=== PATIENT | male | born 1970 | race Caucasian/White ===

== ENCOUNTER 2022-09-05 18:08 | Emergency (ER) | payer SELFPAY ==
[~2022-09-05] VITALS: Ht 172.7 cm; Wt 96.7 kg
--- NOTE | 2022-09-05 18:20 | ED Respiratory ---
General Chief Complaint: Respiratory Problems Stated Complaint: SOB Source: patient, EMS Exam Limitations: no limitations History of Present Illness Date Seen by Provider: Sep 05, 2022 Time Seen by Provider: 18:10 Initial Comments 51-year-old male arrives via EMS from the [facility]. He states that after dinner, around 430 or 5 PM he was talking with staff and became flushed, short of breath and anxious. He states he does have a history of anxiety attacks in the past, specifically when he was in assisted recently he started having panic attacks. They started him on an albuterol inhaler which did seem to help with his breathing symptoms that he has during these attacks. Today's episode is similar to previous episodes per his report however he did feel a little bit warmer than he usually does during these episodes. He denies any chest pain. He did have tingling in his bilateral hands and some lightheadedness. He was able to use his albuterol inhaler, 2 puffs prior to arrival and his breathing symptoms did improve. He states he is still feeling "exhausted" but otherwise is symptom-free at present. Denies any recent fevers chills nausea vomiting chest pain abdominal pain, changes in bowel or bladder habits. He does state he has had increased acid reflux as he is currently out of his Protonix. He also thinks he is almost out of his albuterol inhaler. Allergies and Home Medications Allergies Coded Allergies: No Known Drug Allergies (Unverified , 09/05/22) Patient Home Medication List Home Medication List Reviewed: Yes Review of Systems Review of Systems Constitutional: no symptoms reported EENTM: no symptoms reported Respiratory: short of breath Cardiovascular: no symptoms reported Gastrointestinal: no symptoms reported Genitourinary: no symptoms reported Musculoskeletal: no symptoms reported Skin: no symptoms reported Psychiatric/Neurological: No Symptoms Reported Hematologic/Lymphatic: No Symptoms Reported Immunological/Allergic: no symptoms reported Past Jujnjey-Hmfiha-Keathk Hx Patient Social History Tobacco Use?: Yes Tobacco type used: Cigarettes Smoking Status: Current Everyday Smoker Smokeless Tobacco Frequency: Heavy User Use of E-Cig and/or Vaping dev: No Substance use?: No Alcohol Use?: No Past Medical History Surgery/Hospitalization HX: Anxiety, GERD, hypercholesterolemia Family Medical History Reviewed Nursing Family Hx No Pertinent Family Hx Physical Exam Vital Signs - First Documented 09/05/22 18:10 Temp 36.2 Pulse 93 Resp 18 B/P (MAP) 131/101 (111) O2 Delivery Room Air Capillary Refill : Height: '" Weight: lbs. oz. kg; BMI Method: General Appearance: WD/WN, no apparent distress Eyes: Bilateral Eye Normal Inspection, Bilateral Eye PERRL, Bilateral Eye EOMI HEENT: normal ENT inspection, pharynx normal Neck: non-tender, full range of motion, supple, normal inspection Respiratory: chest non-tender, lungs clear, normal breath sounds, no respiratory distress, no accessory muscle use Cardiovascular: regular rate, rhythm, no edema, no gallop, no JVD, no murmur Gastrointestinal: normal bowel sounds, non tender, soft, no organomegaly Extremities: non-tender, normal inspection, no pedal edema Neurologic/Psychiatric: no motor/sensory deficits, alert, normal mood/affect, oriented x 3 Skin: normal color, warm/dry Lymphatic: no adenopathy Progress/Results/Core Measures Suspected Sepsis SIRS Temperature: Pulse: Respiratory Rate: Laboratory Tests 09/05/22 18:24: White Blood Count 10.1 Blood Pressure / Mean: Laboratory Tests 09/05/22 18:24: Creatinine 0.99, Platelet Count 291, Total Bilirubin 0.3 Results/Orders Lab Results Laboratory Tests Test 09/05/22 18:24 Range/Units White Blood Count 10.1 4.3-11.0 10^3/uL Red Blood Count 4.34 4.30-5.52 10^6/uL Hemoglobin 14.1 13.3-17.7 g/dL Hematocrit 41 40-54 % Mean Corpuscular Volume 95 80-99 fL Mean Corpuscular Hemoglobin 33 25-34 pg Mean Corpuscular Hemoglobin Concent 34 32-36 g/dL Red Cell Distribution Width 11.0 10.0-14.5 % Platelet Count 291 130-400 10^3/uL Mean Platelet Volume 9.7 9.0-12.2 fL Immature Granulocyte % (Auto) 0 % Neutrophils (%) (Auto) 56 42-75 % Lymphocytes (%) (Auto) 30 12-44 % Monocytes (%) (Auto) 12 0-12 % Eosinophils (%) (Auto) 1 0-10 % Basophils (%) (Auto) 1 0-10 % Neutrophils # (Auto) 5.6 1.8-7.8 10^3/uL Lymphocytes # (Auto) 3.0 1.0-4.0 10^3/uL Monocytes # (Auto) 1.2 H 0.0-1.0 10^3/uL Eosinophils # (Auto) 0.1 0.0-0.3 10^3/uL Basophils # (Auto) 0.1 0.0-0.1 10^3/uL Immature Granulocyte # (Auto) 0.0 0.0-0.1 10^3/uL Sodium Level 138 135-145 MMOL/L Potassium Level 4.2 3.6-5.0 MMOL/L Chloride Level 104 98-107 MMOL/L Carbon Dioxide Level 23 21-32 MMOL/L Anion Gap 11 5-14 MMOL/L Blood Urea Nitrogen 26 H 7-18 MG/DL Creatinine 0.99 0.60-1.30 MG/DL Estimat Glomerular Filtration Rate 92 BUN/Creatinine Ratio 26 Glucose Level 90 70-105 MG/DL Calcium Level 9.7 8.5-10.1 MG/DL Corrected Calcium 9.4 8.5-10.1 MG/DL Total Bilirubin 0.3 0.1-1.0 MG/DL Aspartate Amino Transf (AST/SGOT) 36 H 5-34 U/L Alanine Aminotransferase (ALT/SGPT) 34 0-55 U/L Alkaline Phosphatase 63 40-136 U/L Total Protein 7.7 6.4-8.2 GM/DL Albumin 4.4 3.2-4.5 GM/DL My Orders Orders - WALLACE CHRISTINE DO Chest Pa/Lat (2 View) (09/05/22 18:18) Cbc With Automated Diff (09/05/22 18:18) Comprehensive Metabolic Panel (09/05/22 18:18) Vital Signs/I&O 09/05/22 09/05/22 09/05/22 18:10 18:20 19:45 Temp 36.2 36.2 Pulse 93 135 Resp 18 18 B/P (MAP) 131/101 (111) 135/84 O2 Delivery Room Air Room Air Room Air Capillary Refill : Departure Communication (Admissions) Patient is hemodynamically stable. He has no cardiac risk factors. Symptoms consistent with anxiety attack as it is similar to his previous attacks in the past. Work-up here is unremarkable for any cardiac or respiratory etiology. He be discharged home in stable condition with supportive care. Impression Primary Impression: Anxiousness Disposition: 01 HOME, SELF-CARE Condition: Stable Departure-Patient Inst. Add. Discharge Instructions: Discharge instructions provided written as we had computer downtime during discharge. All discharge instructions reviewed with patient and/or family. Voiced understanding. WALLACE CHRISTINE DO Sep 05, 2022 18:20
[2022-09-05 18:26] LABS: BASOPHILS # (AUTO) 0.1 10^3/uL (0.0-0.1); BASOPHILS % (AUTO) 1 % (0-10); EOSINOPHILS # (AUTO) 0.1 10^3/uL (0.0-0.3); EOSINOPHILS % (AUTO) 1 % (0-10); HEMATOCRIT 41 % (40-54); HEMOGLOBIN 14.1 g/dL (13.3-17.7); LYMPHOCYTES % (AUTO) 30 % (12-44); MEAN CORPUSCULAR HEMOGLOBIN 33 pg (25-34); MEAN CORPUSCULAR HGB CONC 34 g/dL (32-36); MEAN CORPUSCULAR VOLUME 95 fL (80-99); MEAN PLATELET VOLUME 9.7 fL (9.0-12.2); MONOCYTES # (AUTO) 1.2 10^3/uL (0.0-1.0); MONOCYTES % (AUTO) 12 % (0-12); NEUTROPHILS # (AUTO) 5.6 10^3/uL (1.8-7.8); NEUTROPHILS % (AUTO) 56 % (42-75); PLATELET COUNT 291 10^3/uL (130-400); WHITE BLOOD COUNT 10.1 10^3/uL (4.3-11.0)
[2022-09-05 19:45] VITALS: BP 135/84
--- NOTE | 2022-09-05 19:49 | Diagnostic Imaging Report ---
CLINICAL INDICATION: Patient with dyspnea. EXAM: Chest x-ray PA and lateral views. COMPARISON: None. FINDINGS: Lungs/pleura: Lungs are clear. There is no pneumothorax. There is no pleural effusion. Mediastinum: Unremarkable. Pulmonary vasculature: Unremarkable. Heart: Unremarkable. Bones/extrathoracic soft tissue: Unremarkable. IMPRESSION: There is no radiographic evidence of acute cardiopulmonary process. Dictated by: Dictated on workstation # [id number]
[2022-09-05 19:57] LABS: POTASSIUM 4.2 MMOL/L (3.6-5.0)
[2022-09-05 19:58] LABS: BILIRUBIN,TOTAL 0.3 MG/DL (0.1-1.0); CALCIUM 9.7 MG/DL (8.5-10.1); CREATININE SERUM 0.99 MG/DL (0.60-1.30); TOTAL PROTEIN 7.7 GM/DL (6.4-8.2)
[2022-09-05 19:59] LABS: ALBUMIN 4.4 GM/DL (3.2-4.5)
== END 2022-09-05 19:58 | disposition home or self-care (01) ==
LOC: ER 18:10
DX: F41.9 Anxiety disorder, unspecified (principal); F17.210 Nicotine dependence, cigarettes, uncomplicated; Z28.310 Unvaccinated for COVID-19
CPT/HCPCS: 36415; 71046; 80053; 85025

== ENCOUNTER 2022-09-11 15:57 | Emergency (ER) | payer SELFPAY ==
--- NOTE | 2022-09-11 16:34 | ED Chest Pain ---
General Stated Complaint: SOA - HIGH BP Source: patient Exam Limitations: no limitations History of Present Illness Date Seen by Provider: Sep 11, 2022 Time Seen by Provider: 16:29 Initial Comments Patient is a 51-year-old male who presents the ED by POV from the [facility]. He states this a few hours before arrival he started having shortness of breath, facial redness. Patient reports sitting at the [facility] at that time. Started feeling short of breath with facial flushing. Patient took 2 puffs of his albuterol inhaler with some improvement of the shortness of breath. He states this does feel similar to previous panic attack. Staff at the [facility] called [facility] nurse who states patient appeared sweaty and was having d ifficulty breathing. States that he has been feeling malaise, with weakness with dizziness over the past 2 weeks. Dizziness with standing or eating. States he has generalized abdominal pain daily. History of GERD, IBS and cholecystectomy. Reports intermittent nausea with diarrhea. He is also reporting left wrist pain with his swelling. Staff was concern for left arm swelling. Patient is complaining of left wrist pain. Also reports bilateral lower leg pain. He states he may have hit his right leg with some bruising on the anterior side of his leg. Patient states he feels exhausted. He is currently on Protonix for acid reflux. Denies of any current chest pain but does report mild shortness of breath. Denies of any recent cough, fever, headache, sore throat, visual changes, unilateral muscle weakness or sensory changes, vomiting. Patient is a poor historian Allergies and Home Medications Allergies Coded Allergies: No Known Drug Allergies (Unverified , 09/05/22) Patient Home Medication List Home Medication List Reviewed: Yes Review of Systems Review of Systems Constitutional: No chills, No diaphoresis; malaise, weakness EENTM: No Double Vision, No Eye Pain Respiratory: Denies Cough; Shortness of Air Cardiovascular: Denies Chest Pain Gastrointestinal: Abdominal Pain, Nausea; Denies Vomiting Genitourinary: Denies Burning, Denies Discharge Musculoskeletal: No back pain, No joint pain Skin: No change in color, No change in hair/nails All Other Systems Reviewed Negative Unless Noted: Yes Past Flgezna-Bquklt-Zrmgkv Hx Past Medical History Surgery/Hospitalization HX: Anxiety, GERD, hypercholesterolemia Family Medical History No Pertinent Family Hx Physical Exam Vital Signs Vital Signs - First Documented 09/11/22 16:12 Temp 36.6 Pulse 99 Resp 22 B/P (MAP) 147/127 (134) Pulse Ox 99 O2 Delivery Room Air Capillary Refill : Height, Weight, BMI Height: '" Weight: lbs. oz. kg; 32.00 BMI Method: General Appearance: No Apparent Distress, WD/WN HEENT: PERRL/EOMI, TMs Normal, Normal ENT Inspection, Pharynx Normal Neck: Full Range of Motion, Normal Inspection, Non Tender, Supple Respiratory: Chest Non Tender, Lungs Clear, Normal Breath Sounds, No Accessory Muscle Use, No Respiratory Distress Cardiovascular: Regular Rate, Rhythm, No Edema, No JVD Gastrointestinal: Normal Bowel Sounds, No Organomegaly, No Pulsatile Mass, Soft, Tenderness (Generalized abdominal tenderness) Extremity: Normal Capillary Refill, Other (Tenderness to palpate left distal wrist. Mild swelling. No erythema, bruising to the left arm. Anterior bruising to the right anterior tib-fib with a contusion. Neurovascular intact bilateral lower extremities with dorsiflexion and plantarflexion 5-5.) Neurologic/Psychiatric: Alert, Oriented x3, No Motor/Sensory Deficits, Normal Mood/Affect Progress/Results/Core Measures Results/Orders Lab Results Laboratory Tests Test 09/11/22 16:39 09/11/22 16:43 Range/Units White Blood Count 7.0 4.3-11.0 10^3/uL Red Blood Count 4.31 4.30-5.52 10^6/uL Hemoglobin 13.9 13.3-17.7 g/dL Hematocrit 41 40-54 % Mean Corpuscular Volume 94 80-99 fL Mean Corpuscular Hemoglobin 32 25-34 pg Mean Corpuscular Hemoglobin Concent 34 32-36 g/dL Red Cell Distribution Width 11.0 10.0-14.5 % Platelet Count 264 130-400 10^3/uL Mean Platelet Volume 9.7 9.0-12.2 fL Immature Granulocyte % (Auto) 0 % Neutrophils (%) (Auto) 58 42-75 % Lymphocytes (%) (Auto) 30 12-44 % Monocytes (%) (Auto) 11 0-12 % Eosinophils (%) (Auto) 1 0-10 % Basophils (%) (Auto) 1 0-10 % Neutrophils # (Auto) 4.0 1.8-7.8 10^3/uL Lymphocytes # (Auto) 2.1 1.0-4.0 10^3/uL Monocytes # (Auto) 0.7 0.0-1.0 10^3/uL Eosinophils # (Auto) 0.1 0.0-0.3 10^3/uL Basophils # (Auto) 0.1 0.0-0.1 10^3/uL Immature Granulocyte # (Auto) 0.0 0.0-0.1 10^3/uL Prothrombin Time 12.4 12.2-14.7 SEC INR Comment 0.9 0.8-1.4 Activated Partial Thromboplast Time 28 24-35 SEC D-Dimer < 0.27 0.00-0.49 UG/ML Sodium Level 138 135-145 MMOL/L Potassium Level 3.6 3.6-5.0 MMOL/L Chloride Level 104 98-107 MMOL/L Carbon Dioxide Level 24 21-32 MMOL/L Anion Gap 10 5-14 MMOL/L Blood Urea Nitrogen 16 7-18 MG/DL Creatinine 1.06 0.60-1.30 MG/DL Estimat Glomerular Filtration Rate 84 BUN/Creatinine Ratio 15 Glucose Level 95 70-105 MG/DL Calcium Level 8.8 8.5-10.1 MG/DL Corrected Calcium 8.5 8.5-10.1 MG/DL Magnesium Level 2.0 1.6-2.4 MG/DL Total Bilirubin 0.4 0.1-1.0 MG/DL Aspartate Amino Transf (AST/SGOT) 25 5-34 U/L Alanine Aminotransferase (ALT/SGPT) 28 0-55 U/L Alkaline Phosphatase 62 40-136 U/L Myoglobin 27.6 10.0-92.0 NG/ML B-Type Natriuretic Peptide 18.7 <100.0 PG/ML Total Protein 7.5 6.4-8.2 GM/DL Albumin 4.4 3.2-4.5 GM/DL Lipase 56 8-78 U/L Urine Color YELLOW Urine Clarity CLEAR Urine pH 6.0 5-9 Urine Specific [place] 1.020 1.016-1.022 Urine Protein NEGATIVE NEGATIVE Urine Glucose (UA) NEGATIVE NEGATIVE Urine Ketones NEGATIVE NEGATIVE Urine Nitrite NEGATIVE NEGATIVE Urine Bilirubin NEGATIVE NEGATIVE Urine Urobilinogen 0.2 < = 1.0 MG/DL Urine Leukocyte Esterase NEGATIVE NEGATIVE Urine RBC (Auto) NEGATIVE NEGATIVE Urine RBC NONE /HPF Urine WBC NONE /HPF Urine Squamous Epithelial Cells NONE /HPF Urine Crystals NONE /LPF Urine Bacteria NEGATIVE /HPF Urine Casts NONE /LPF Urine Mucus NEGATIVE /LPF Urine Culture Indicated NO My Orders Orders - EUGENIE TONG PA Cbc With Automated Diff (09/11/22 16:25) Magnesium (09/11/22 16:25) Chest 1 View, Ap/Pa Only (09/11/22 16:25) Ekg Tracing (09/11/22 16:25) Comprehensive Metabolic Panel (09/11/22 16:25) Myoglobin Serum (09/11/22 16:25) Protime With Inr (09/11/22 16:25) Partial Thromboplastin Time (09/11/22 16:25) Monitor-Rhythm Ecg Trace Only (09/11/22 16:25) Ed Iv/Invasive Line Start (09/11/22 16:25) Lipase (09/11/22 16:25) Bnp Kidder (09/11/22 16:25) Troponin I Kidder (09/11/22 16:25) Wrist, Left, 3 Views Or More (09/11/22 16:25) Fibrin Degradation Products (09/11/22 16:27) Urinalysis (09/11/22 16:28) Vital Signs/I&O 09/11/22 16:12 Temp 36.6 Pulse 99 Resp 22 B/P (MAP) 147/127 (134) Pulse Ox 99 O2 Delivery Room Air Comment Sinus rhythm, 84 bpm, QRS duration 90 MS, QTc 447 MS Departure Communication (PCP) Patient was brought to the ED by [facility] staff for shortness of breath, facial flushing and potential blood clot. Patient is currently at the [facility]. Patient on arrival in no acute respiratory distress. Patient has multiple complaints and poor historian. Due to the shortness of breath, left arm pain cardiac work-up was ordered. Patient was slightly tachycardic but that did improve. 98% on room air. Slightly hypertensive. EKG showed normal sinus rhythm. Patient with low cardiac risk factors. Heart score 2. Patient chest x-ray was negative for acute abnormality. Patient was complaining of left wrist pain. Mild swelling noted. X-ray was negative for fracture. No bruising, swelling or redness to the left arm. Has an bruising to the right anterior lowe r tib-fib. He states he hit his leg on something. No calf tenderness bilateral. Negative Homans' sign. Patient reports generalized abdominal discomfort with generalized tenderness. CBC, CMP was otherwise unremarkable. Urinalysis was negative for infection. Normal cardiac enzymes troponin, BNP and D-dimer. Patient is resting comfortably at this time. patient with chronic ab dominal pain. History of IBS. Recommend Bentyl. He is currently on Protonix after reviewing previous medication. Reviewed previous ER visit from the . Patient was seen here with increase anxiousness. Similar type behavior today. Reassured with unremarkable cardiac work-up. Patient will be discharged back to the [facility]. Patient agrees with this plan of action. Impression Primary Impression: Anxiousness Additional Impression: Dyspnea Disposition: 01 HOME, SELF-CARE Condition: Stable Departure-Patient Inst. Decision time for Depature: 17:24 Referrals: [facility] [place],LOCAL PHYSICIAN (PCP) Primary Care Physician Patient Instructions: Shortness of Breath (Dyspnea) Add. Discharge Instructions: Recommend following up with primary care physician outpatient for further evaluation. Cardiac work-up was unremarkable. No evidence of PE or DVT. EUGENIE TONG Sep 11, 2022 16:34
[2022-09-11 16:46] LABS: BASOPHILS # (AUTO) 0.1 10^3/uL (0.0-0.1); BASOPHILS % (AUTO) 1 % (0-10); EOSINOPHILS # (AUTO) 0.1 10^3/uL (0.0-0.3); EOSINOPHILS % (AUTO) 1 % (0-10); HEMATOCRIT 41 % (40-54); HEMOGLOBIN 13.9 g/dL (13.3-17.7); LYMPHOCYTES # (AUTO) 2.1 10^3/uL (1.0-4.0); LYMPHOCYTES % (AUTO) 30 % (12-44); MEAN CORPUSCULAR HEMOGLOBIN 32 pg (25-34); MEAN CORPUSCULAR HGB CONC 34 g/dL (32-36); MEAN CORPUSCULAR VOLUME 94 fL (80-99); MEAN PLATELET VOLUME 9.7 fL (9.0-12.2); MONOCYTES # (AUTO) 0.7 10^3/uL (0.0-1.0); MONOCYTES % (AUTO) 11 % (0-12); NEUTROPHILS % (AUTO) 58 % (42-75); PLATELET COUNT 264 10^3/uL (130-400)
[2022-09-11 16:50] LABS: BILIRUBIN,URINE NEGATIVE (NEGATIVE); CLARITY,URINE CLEAR; COLOR,URINE YELLOW; GLUCOSE, URINE (UA) NEGATIVE (NEGATIVE); KETONES,URINE NEGATIVE (NEGATIVE); LEUKOCYTE ESTERASE ,URINE NEGATIVE (NEGATIVE); NITRITE,URINE NEGATIVE (NEGATIVE); PROTEIN,URINE NEGATIVE (NEGATIVE)
[2022-09-11 16:58] LABS: BACTERIA,URINE NEGATIVE /HPF
--- NOTE | 2022-09-11 16:58 | Diagnostic Imaging Report ---
PATIENT HISTORY: Chest pain. TECHNIQUE: Single frontal view of the chest. COMPARISON: 09/05/2022. FINDINGS: The lung volumes are normal. No focal consolidation is seen. No large pleural effusion or pneumothorax is seen. The cardiomediastinal silhouette is normal in size and contour. No acute osseous abnormality is seen. IMPRESSION: No acute pulmonary abnormality seen. Dictated by: Dictated on workstation # [id number]
--- NOTE | 2022-09-11 16:58 | Diagnostic Imaging Report ---
EXAMINATION: Left wrist radiographs, 3 views. COMPARISON: None. HISTORY: 51-year-old male, left wrist pain. FINDINGS: There is no identified acute fracture. Bone mineralization and alignment is unremarkable. There is no radiopaque foreign body. The joint spaces are well preserved. IMPRESSION: Unremarkable radiographs of the left wrist. Dictated by: Dictated on workstation # [id number]
[2022-09-11 17:04] LABS: ALBUMIN 4.4 GM/DL (3.2-4.5); POTASSIUM 3.6 MMOL/L (3.6-5.0)
[2022-09-11 17:06] LABS: CALCIUM 8.8 MG/DL (8.5-10.1)
[2022-09-11 17:07] LABS: TOTAL PROTEIN 7.5 GM/DL (6.4-8.2)
[2022-09-11 17:09] LABS: BILIRUBIN,TOTAL 0.4 MG/DL (0.1-1.0)
[2022-09-11 17:10] LABS: CREATININE SERUM 1.06 MG/DL (0.60-1.30)
[2022-09-11 17:22] LABS: INR 0.9 (0.8-1.4); PROTHROMBIN TIME PATIENT 12.4 SEC (12.2-14.7)
[2022-09-11 18:05] VITALS: BP 153/92
== END 2022-09-11 18:07 | disposition home or self-care (01) ==
LOC: EDUNIT# 15:57 → ER 15:58
DX: S60.212A Contusion of left wrist, initial encounter (principal); S80.11XA Contusion of right lower leg, initial encounter; F41.9 Anxiety disorder, unspecified; K21.9 Gastro-esophageal reflux disease without esophagitis; Z79.899 Other long term (current) drug therapy; Z90.49 Acquired absence of other specified parts of digestive tract; Z87.19 Personal history of other diseases of the digestive system; Z28.310 Unvaccinated for COVID-19; W22.8XXA Striking against or struck by other objects, initial encounter
CPT/HCPCS: 36415; 71045; 73110; 80053; 81000; 83690; 83735; 83874; 83880; 84484; 85025; 85379; 85610; 85730; 93005

== ENCOUNTER 2022-11-11 22:07 | Emergency (ER) | payer SELFPAY ==
[~2022-11-11] VITALS: Ht 172.7 cm; Wt 85.0 kg
--- NOTE | 2022-11-11 22:41 | ED Respiratory ---
General Chief Complaint: Respiratory Problems Stated Complaint: SOA Source: patient History of Present Illness Date Seen by Provider: Nov 11, 2022 Time Seen by Provider: 22:40 Initial Comments PT ARRIVES VIA EMS FROM A RESIDENCE --PT STATES HE IS HOMELESS PT C/O SHORTNESS OF BREATH AFTER SMOKING A CIGARETTE JUST PRIOR TO ARRIVAL O2 SATS WERE 100% FOR EMS, AND EMS GAVE PT A DUO NEB TREATMENT EN ROUTE. HE DOES NOT FEEL SHORT OF BREATH NOW. PT STATES HE HAS "BEEN SMOKING ALL DAY"--HAS SMOKED 1 PACK TODAY, WHICH IS WHAT HE NORMALLY SMOKES. PT STATES HE STARTED SMOKING WHEN HE WAS 17, HE WENT TO [facility] A LITTLE OVER 10 YEARS AGO AND WAS THERE FOR 10 YEARS, AND WAS RELEASED IN JUNE 2022. HE STATES HE DID NOT SMOKE WHILE HE WAS IN [facility], BUT STARTED SMOKING AGAIN SOON HE GOT OUT OF [facility]. HE DENIES CHEST PAIN OR PAIN WITH BREATHING NO FEVER/SWEATS/CHILLS NO SWELLING IN LEGS/ANKLES OR PAIN IN CALVES NO PALPITATIONS NO DIZZINESS OR SYNCOPE PT STATES HE HAS BEEN SICK FOR THE LAST 2-3 DAYS WITH NON-PRODUCTIVE COUGH AND CONGESTION--NO FEVER AT ANY TIME HE HAS NOT TAKEN ANYTHING FOR SYMPTOMS HIS GIRLFRIEND HAS ALSO BEEN SICK FOR THE LAST FEW DAYS WITH COUGH AND CONGESTION. PT IS NOT COVID OR FLU VACCINATED HE DENIES ANY MEDICAL PROBLEMS, AND DENIES ANY HISTORY OF LUNG PROBLEMS OR HEART PROBLEMS PCP :ADDISON Allergies and Home Medications Allergies Coded Allergies: No Known Drug Allergies (Unverified , 09/05/22) Patient Home Medication List Home Medication List Reviewed: Yes Doxycycline Hyclate (Doxycycline Hyclate) 100 Mg Tablet, 100 MG PO BID Prescribed by: DEMARCO AGUILAR on 11/12/22 Guaifenesin/Dextromethorphan (Mucinex Dm ER 1,200-60 mg Tab) 1,200 Mg-60 Mg Tbmp.12hr, 1 EACH PO BID Prescribed by: DEMARCO AGUILAR on 11/12/22 Methylprednisolone (Medrol) 4 Mg Tab.ds.pk, 4 MG PO UD Prescribed by: DEMARCO AGUILAR on 11/12/22 Review of Systems Review of Systems Constitutional: no symptoms reported; No chills, No diaphoresis, No dizziness, No fever EENTM: see HPI, nose congestion Respiratory: see HPI, cough, short of breath Cardiovascular: no symptoms reported Gastrointestinal: no symptoms reported Genitourinary: no symptoms reported Musculoskeletal: no symptoms reported Skin: no symptoms reported Psychiatric/Neurological: No Symptoms Reported Hematologic/Lymphatic: No Symptoms Reported Past Wbtwnsr-Ismshs-Leduem Hx Patient Social History Tobacco Use?: Yes Tobacco type used: Cigarettes Smoking Status: Current Everyday Smoker Use of E-Cig and/or Vaping dev: No Substance use?: Yes Alcohol Use?: Yes Past Medical History Surgery/Hospitalization HX: Anxiety, GERD, hypercholesterolemia Surgeries: Yes Gallbladder, Tonsillectomy Respiratory: No Cardiac: Yes High Cholesterol Neurological: No Genitourinary: No Gastrointestinal: Yes Gastroesophageal Reflux Musculoskeletal: No Endocrine: No HEENT: No Cancer: No Psychosocial: Yes Anxiety Integumentary: No Blood Disorders: No Family Medical History No Pertinent Family Hx SOCIAL HISTORY: -SMOKES 1 PPD FROM AGE 17 ( QUIT FOR 10 YEARS WHILE IN [facility] FROM 2011-06/2022), THEN RESTARTED SOON HE GOT OUT OF [facility] 06/2022 -ETOH--USED TO DRINK 12 PACK OF BEER EVERY DAY BEFORE HE WENT TO [facility] -DRUGS--USED TO SMOKE MARIJUANA ON REGULAR BASIS, USED "ROCK COCAINE" ONCE--DENIES IV USE. PAST SURGICAL HISTORY: -TONSILLECTOMY -CHOLECYSTECTOMY Physical Exam Vital Signs - First Documented 11/11/22 22:08 Temp 37.0 Pulse 94 Resp 20 B/P (MAP) 144/101 (115) Pulse Ox 97 O2 Delivery Room Air Capillary Refill : Height: '" Weight: lbs. oz. 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, no motor/sensory deficits, alert, normal mood/affect, oriented x 3 Skin: normal color, warm/dry Focused Exam Lactate Level 11/11/22 23:00: Lactic Acid Level 1.35 Lactic Acid Level Laboratory Tests Test 11/11/22 23:00 Lactic Acid Level 1.35 MMOL/L (0.50-2.00) Progress/Results/Core Measures Suspected Sepsis SIRS Temperature: Pulse: Respiratory Rate: Laboratory Tests 11/11/22 23:00: White Blood Count 7.5 Blood Pressure / Mean: 11/11/22 23:00: Lactic Acid Level 1.35 Laboratory Tests 11/11/22 22:30: INR Comment 0.9 11/11/22 23:00: Creatinine 0.89, Platelet Count 197, Total Bilirubin 0.3 Results/Orders Lab Results Laboratory Tests Test 11/11/22 22:30 11/11/22 23:00 11/11/22 23:07 Range/Units Prothrombin Time 12.7 12.2-14.7 SEC INR Comment 0.9 0.8-1.4 Activated Partial Thromboplast Time 31 24-35 SEC White Blood Count 7.5 4.3-11.0 10^3/uL Red Blood Count 4.67 4.30-5.52 10^6/uL Hemoglobin 14.9 13.3-17.7 g/dL Hematocrit 44 40-54 % Mean Corpuscular Volume 94 80-99 fL Mean Corpuscular Hemoglobin 32 25-34 pg Mean Corpuscular Hemoglobin Concent 34 32-36 g/dL Red Cell Distribution Width 11.1 10.0-14.5 % Platelet Count 197 130-400 10^3/uL Mean Platelet Volume 10.8 9.0-12.2 fL Immature Granulocyte % (Auto) 0 % Neutrophils (%) (Auto) 65 42-75 % Lymphocytes (%) (Auto) 18 12-44 % Monocytes (%) (Auto) 14 H 0-12 % Eosinophils (%) (Auto) 2 0-10 % Basophils (%) (Auto) 1 0-10 % Neutrophils # (Auto) 4.9 1.8-7.8 10^3/uL Lymphocytes # (Auto) 1.4 1.0-4.0 10^3/uL Monocytes # (Auto) 1.0 0.0-1.0 10^3/uL Eosinophils # (Auto) 0.1 0.0-0.3 10^3/uL Basophils # (Auto) 0.1 0.0-0.1 10^3/uL Immature Granulocyte # (Auto) 0.0 0.0-0.1 10^3/uL Sodium Level 138 135-145 MMOL/L Potassium Level 3.6 3.6-5.0 MMOL/L Chloride Level 107 98-107 MMOL/L Carbon Dioxide Level 18 L 21-32 MMOL/L Anion Gap 13 5-14 MMOL/L Blood Urea Nitrogen 11 7-18 MG/DL Creatinine 0.89 0.60-1.30 MG/DL Estimat Glomerular Filtration Rate 102 BUN/Creatinine Ratio 12 Glucose Level 100 70-105 MG/DL Lactic Acid Level 1.35 0.50-2.00 MMOL/L Calcium Level 8.8 8.5-10.1 MG/DL Corrected Calcium 8.7 8.5-10.1 MG/DL Magnesium Level 2.0 1.6-2.4 MG/DL Total Bilirubin 0.3 0.1-1.0 MG/DL Aspartate Amino Transf (AST/SGOT) 19 5-34 U/L Alanine Aminotransferase (ALT/SGPT) 13 0-55 U/L Alkaline Phosphatase 57 40-136 U/L Troponin I < 0.028 <0.028 NG/ML B-Type Natriuretic Peptide < 10.0 <100.0 PG/ML Total Protein 7.0 6.4-8.2 GM/DL Albumin 4.1 3.2-4.5 GM/DL Influenza Type A (RT-PCR) Not Detected Not Detecte Influenza Type B (RT-PCR) Not Detected Not Detecte SARS-CoV-2 RNA (RT-PCR) Not Detected Not Detecte Urine Color YELLOW Urine Clarity CLEAR Urine pH 6.5 5-9 Urine Specific [place] 1.025 H 1.016-1.022 Urine Protein NEGATIVE NEGATIVE Urine Glucose (UA) NEGATIVE NEGATIVE Urine Ketones NEGATIVE NEGATIVE Urine Nitrite NEGATIVE NEGATIVE Urine Bilirubin NEGATIVE NEGATIVE Urine Urobilinogen 0.2 < = 1.0 MG/DL Urine Leukocyte Esterase NEGATIVE NEGATIVE Urine RBC (Auto) 1+ H NEGATIVE Urine RBC 0-2 /HPF Urine WBC NONE /HPF Urine Crystals NONE /LPF Urine Bacteria NEGATIVE /HPF Urine Casts NONE /LPF Urine Mucus LARGE H /LPF Urine Culture Indicated CULTURE PENDING Urine Opiates Screen NEGATIVE NEGATIVE Urine Oxycodone Screen NEGATIVE NEGATIVE Urine Methadone Screen NEGATIVE NEGATIVE Urine Propoxyphene Screen NEGATIVE NEGATIVE Urine Barbiturates Screen NEGATIVE NEGATIVE Ur Tricyclic Antidepressants Screen NEGATIVE NEGATIVE Urine Phencyclidine Screen NEGATIVE NEGATIVE Urine Amphetamines Screen NEGATIVE NEGATIVE Urine Methamphetamines Screen NEGATIVE NEGATIVE Urine Benzodiazepines Screen NEGATIVE NEGATIVE Urine Cocaine Screen NEGATIVE NEGATIVE Urine Cannabinoids Screen NEGATIVE NEGATIVE My Orders Orders - DEMARCO AGUILAR DO Ed Iv/Invasive Line Start (11/11/22 22:41) Ekg Tracing (11/11/22 22:41) O2 (11/11/22 22:41) Monitor-Rhythm Ecg Trace Only (11/11/22 22:41) Bnp Iesha (11/11/22 22:41) Cbc With Automated Diff (11/11/22 22:41) Comprehensive Metabolic Panel (11/11/22 22:41) Drug Screen Stat (Urine) (11/11/22 22:41) Lactic Acid Analyzer (11/11/22 22:41) Magnesium (11/11/22 22:41) Protime With Inr (11/11/22 22:41) Partial Thromboplastin Time (11/11/22 22:41) Ua Culture If Indicated (11/11/22 22:41) Troponin I Webb (11/11/22 22:41) Chest 1 View, Ap/Pa Only (11/11/22 22:41) Covid 19 Inhouse Test (11/11/22 22:41) Blood Culture (11/11/22 22:41) Sputum Culture (11/11/22 22:41) Urine Culture (11/11/22 22:41) Ed Iv/Invasive Line Start (11/11/22 22:41) Ed Iv/Invasive Line Start (11/11/22 22:41) Vital Signs Adult Sepsis Patie Q15M (11/11/22 22:41) O2 (11/11/22 22:41) Remove Rings In Anticipation O (11/11/22 22:41) Influenza A And B By Pcr (11/11/22 22:41) Isolation Central Supply Req (11/11/22 22:41) Dexamethasone Injection (Decadron Inje (11/11/22 22:45) Ceftriaxone Iv/Im (Rocephin Iv/Im) (11/12/22 00:00) Rx-Albuterol Inhaler (Rx-Ventolin Hfa In (11/11/22 23:54) Rx-Dicyclomine Capsule (Rx-Bentyl Capsul (11/11/22 23:54) Medications Given in ED Current Medications Medications Dose Ordered Sig/Debra Route Start Time Stop Time Status Last Admin Dose Admin Ceftriaxone Sodium 1000 mg/ Sodium Chloride 50 ml @ 100 mls/hr ONCE ONCE IV 11/12/22 00:00 11/12/22 00:18 DC 11/12/22 00:10 100 MLS/HR Dexamethasone Sodium Phosphate 10 mg ONCE ONCE IV 11/11/22 22:45 11/11/22 22:46 DC 11/11/22 23:06 10 MG Vital Signs/I&O 11/11/22 11/12/22 22:08 00:17 Temp 37.0 36.5 Pulse 94 93 Resp 20 18 B/P (MAP) 144/101 (115) 134/78 Pulse Ox 97 94 O2 Delivery Room Air Room Air Capillary Refill : Progress Note : Progress Note VITALS STABLE, O2 SATS 98% ON ROOM AIR NO DYSPNEA OR HYPOXIA AT ANY TIME RARE, DRY COUGH NO COMPLAINTS FOR ENTIRE ER STAY GIVEN: -DECADRON IV -ROCEPHIN SENT HOME WITH A SPACER AND INHALER--PT STATES HE HAS USED AN INHALER IN THE PAST, BUT NOT FOR YEARS. PT WAS INSTRUCTED ON USE. DISCUSSED TEST RESULTS, ANTICIPATED COURSE, MEDICATIONS, SYMPTOMATIC TREATMENT, NEED FOR FOLLOW UP AND RETURN PRECAUTIONS. ECG Initial ECG Impression Date: Nov 11, 2022 Initial ECG Impression Time: 23:00 Initial ECG Rate: 89 Initial ECG Rhythm: Normal Sinus Initial ECG Intervals: Normal Initial ECG Impression: Normal Initial ECG Comparisson: No Previous ECG Available Comment INTERPRETED BY ME Diagnostic Imaging Comments CXR--NO ACUTE PROCESS, PENDING RADIOLOGIST REVIEW Reviewed: Reviewed by Me Departure Impression Primary Impression: Bronchitis Additional Impression: Smoker Disposition: 01 HOME, SELF-CARE Condition: Improved Departure-Patient Inst. Decision time for Depature: 23:55 Referrals: ELLEN SCHUMACHER DO [facility] Patient Instructions: Bronchitis, Adult ED, How to Use a Metered Dose Inhaler ED, Quitting Smoking ED Add. Discharge Instructions: HOME, REST NO SMOKING LOTS OF CLEAR LIQUIDS TYLENOL AND MOTRIN NEEDED FOR PAIN FOLLOW UP WITH [facility] IN 2-3 DAYS FOR FURTHER CARE, CALL IN THE MORNING TO SCHEDULE APPOINTMENT RETURN TO ER IF SYMPTOMS WORSEN All discharge instructions reviewed with patient and/or family. Voiced understanding. Scripts Guaifenesin/Dextromethorphan (Mucinex Dm ER 1,200-60 mg Tab) 1,200 Mg-60 Mg Tbmp.12hr 1 EACH PO BID, #20 EA Prov: DEMARCO AGUILAR DO 11/12/22 Methylprednisolone (Medrol) 4 Mg Tab.ds.pk 4 MG PO UD for 6 Days, #21 PKG PER DOSE PACK INSTRUCTIONS Prov: DEMARCO AGUILAR DO 11/12/22 Doxycycline Hyclate (Doxycycline Hyclate) 100 Mg Tablet 100 MG PO BID, #20 TAB 0 Refills Prov: DEMARCO AGUILAR DO 11/12/22 DEMARCO AGUILAR DO Nov 11, 2022 22:41
[2022-11-11 22:55] LABS: INR 0.9 (0.8-1.4); PROTHROMBIN TIME PATIENT 12.7 SEC (12.2-14.7)
[2022-11-11 23:17] LABS: BILIRUBIN,URINE NEGATIVE (NEGATIVE); CLARITY,URINE CLEAR; COLOR,URINE YELLOW; GLUCOSE, URINE (UA) NEGATIVE (NEGATIVE); KETONES,URINE NEGATIVE (NEGATIVE); LEUKOCYTE ESTERASE ,URINE NEGATIVE (NEGATIVE); NITRITE,URINE NEGATIVE (NEGATIVE); PH,URINE 6.5 (5-9); PROTEIN,URINE NEGATIVE (NEGATIVE)
[2022-11-11 23:18] LABS: BASOPHILS # (AUTO) 0.1 10^3/uL (0.0-0.1); BASOPHILS % (AUTO) 1 % (0-10); EOSINOPHILS # (AUTO) 0.1 10^3/uL (0.0-0.3); EOSINOPHILS % (AUTO) 2 % (0-10); HEMATOCRIT 44 % (40-54); HEMOGLOBIN 14.9 g/dL (13.3-17.7); LYMPHOCYTES # (AUTO) 1.4 10^3/uL (1.0-4.0); LYMPHOCYTES % (AUTO) 18 % (12-44); MEAN CORPUSCULAR HEMOGLOBIN 32 pg (25-34); MEAN CORPUSCULAR HGB CONC 34 g/dL (32-36); MEAN CORPUSCULAR VOLUME 94 fL (80-99); MEAN PLATELET VOLUME 10.8 fL (9.0-12.2); MONOCYTES % (AUTO) 14 % (0-12); NEUTROPHILS # (AUTO) 4.9 10^3/uL (1.8-7.8); NEUTROPHILS % (AUTO) 65 % (42-75); PLATELET COUNT 197 10^3/uL (130-400); WHITE BLOOD COUNT 7.5 10^3/uL (4.3-11.0)
[2022-11-11 23:25] LABS: BACTERIA,URINE NEGATIVE /HPF; RBC,URINE 0-2 /HPF
[2022-11-11 23:27] LABS: ALBUMIN 4.1 GM/DL (3.2-4.5); CHLORIDE 107 MMOL/L (98-107); POTASSIUM 3.6 MMOL/L (3.6-5.0); SODIUM 138 MMOL/L (135-145)
[2022-11-11 23:28] LABS: CALCIUM 8.8 MG/DL (8.5-10.1)
[2022-11-11 23:29] LABS: GLUCOSE 100 MG/DL (70-105)
[2022-11-11 23:30] LABS: CARBON DIOXIDE 18 MMOL/L (21-32)
[2022-11-11 23:31] LABS: BILIRUBIN,TOTAL 0.3 MG/DL (0.1-1.0)
[2022-11-11 23:33] LABS: ALKALINE PHOSPHATASE 57 U/L (40-136); CREATININE SERUM 0.89 MG/DL (0.60-1.30); GFR ESTIMATED 102
[2022-11-11 23:34] LABS: BUN/CREATININE RATIO 12
[2022-11-11 23:36] LABS: ALANINE AMINOTRANSFERASE 13 U/L (0-55)
[2022-11-11 23:42] LABS: AMPHETAMINE SCREEN, URINE NEGATIVE (NEGATIVE); BARBITURATE SCREEN URINE NEGATIVE (NEGATIVE); BENZODIAZEPINES SCREEN URINE NEGATIVE (NEGATIVE); CANNABINOID SCREEN, URINE NEGATIVE (NEGATIVE); COCAINE SCREEN URINE NEGATIVE (NEGATIVE); METHADONE STAT NEGATIVE (NEGATIVE); OPIATE SCREEN URINE NEGATIVE (NEGATIVE); OXYCODONE STAT NEGATIVE (NEGATIVE); PROPOXYPHENE STAT NEGATIVE (NEGATIVE); TRICYCLIC ANTIDEPRESSANTS SCRE NEGATIVE (NEGATIVE)
[2022-11-11] MEDS ORDERED: RX-DICYCLOMINE 10 MG (BENTYL) CAP PPK#4 PO STA (23:54)
[2022-11-11] MEDS ORDERED: RX-ALBUTEROL INHALER 8.5 GM HFA (PROAIR) IH STA (23:54)
[2022-11-12] MEDS ORDERED: GUAI1TBM19 PO
[2022-11-12] MEDS ORDERED: cefTRIAXone IV/IM 1,000 MG in NS (IVPB) 50 ML IV ONE ×2
[2022-11-12] MEDS ORDERED: METH4TAB PO
[2022-11-12] MEDS ORDERED: DOXY100T2 PO
[2022-11-12 00:17] VITALS: BP 134/78
--- NOTE | 2022-11-12 06:59 | Diagnostic Imaging Report ---
INDICATION: Dyspnea. Comparison is made with prior examination of 09/11/2022. FINDINGS: The heart size, mediastinal configuration, and pulmonary vascularity are within normal limits. There is no pleural effusion, pneumothorax, or pneumonia. The osseous structures are unremarkable. IMPRESSION: No acute cardiopulmonary abnormality. Dictated by: Dictated on workstation # [id number]
== END 2022-11-12 00:18 | disposition home or self-care (01) ==
LOC: EDUNIT# 22:07 → ER 22:08
DX: J40 Bronchitis, not specified as acute or chronic (principal); F17.210 Nicotine dependence, cigarettes, uncomplicated; Z28.310 Unvaccinated for COVID-19; Z20.822 Contact with and (suspected) exposure to COVID-19
CPT/HCPCS: 36415; 71045; 80053; 80306; 81000; 83605; 83735; 83880; 84484; 85025; 85610; 85730; 87040; 87088; 87636; 93005; 93041

== ENCOUNTER 2022-12-01 14:34 | Emergency (ER) | payer SELFPAY ==
[~2022-12-01] VITALS: Ht 172.7 cm; Wt 77.0 kg
[~2022-12-01 14:34] MED LIST: DOXY100T2 PO; GUAI1TBM19 PO; METH4TAB PO
[2022-12-01 15:45] VITALS: BP 129/80
--- NOTE | 2022-12-01 16:13 | ED Psychosocial ---
General Chief Complaint: Psych/Social Disorder Stated Complaint: PSYCH Nursing Triage Note: PT AMBULATORY TO ROOM. STATES HE IS NEWLY HOMELESS AND IS FEELING DEPRESSED. STATES HE IS SEEKING A MENTAL HEALTH SCREENING. PT DENIES SI OR HI Source: patient Exam Limitations: no limitations History of Present Illness Date Seen by Provider: December 01, 2022 Time Seen by Provider: 16:08 Initial Comments Patient is a 52-year-old male who is currently homeless who presents to the ED for feeling depressed. States he has been feeling depressed over the past few days as he is currently homeless and has nowhere to stay. Patient went to [place] police who recommended come to the ED for mental health screening. Patient does have a case management social worker Brian who he stays in contact with. Attempted to contact today but he was not able to get a hold of him today. Patient does see a therapist at [facility]. Saw therapist on . Coping mechanisms for depression is doing puzzles and reading. Patient is wanting somewhere to stay. Patient states he is hungry. Denies of any suicidal homicidal thoughts, drug use or alcohol use. Patient denies chest pain, shortness of breath, cough, headache, dizziness, nausea, vomiting, diarrhea Allergies and Home Medications Allergies Coded Allergies: No Known Drug Allergies (Unverified , 09/05/22) Patient Home Medication List Home Medication List Reviewed: Yes Doxycycline Hyclate (Doxycycline Hyclate) 100 Mg Tablet, 100 MG PO BID Prescribed by: DEMARCO AGUILAR on 11/12/22 Guaifenesin/Dextromethorphan (Mucinex Dm ER 1,200-60 mg Tab) 1,200 Mg-60 Mg Tbmp.12hr, 1 EACH PO BID Prescribed by: DEMARCO AGUILAR on 11/12/22 Methylprednisolone (Medrol) 4 Mg Tab.ds.pk, 4 MG PO UD Prescribed by: DEMARCO AGUILAR on 11/12/22 Review of Systems Constitutional: No chills, No diaphoresis, No fever, No malaise, No weakness EENTM: No hearing loss, No blurred vision, No double vision Respiratory: No cough Cardiovascular: No chest pain, No edema Gastrointestinal: No abdominal pain, No diarrhea, No nausea, No vomiting Musculoskeletal: No back pain, No joint pain Skin: No change in color All Other Systems Reviewed Negative Unless Noted: Yes Past Dbffygm-Mhnnvt-Zrflyo Hx Immunizations Up To Date First/Initial COVID19 Vaccinat: N/A Past Medical History Surgery/Hospitalization HX: Anxiety, GERD, hypercholesterolemia Surgeries: Yes Gallbladder, Tonsillectomy Respiratory: No Cardiac: Yes High Cholesterol Neurological: No Genitourinary: No Gastrointestinal: Yes Gastroesophageal Reflux Musculoskeletal: No Endocrine: No HEENT: No Cancer: No Psychosocial: Yes Anxiety Integumentary: No Blood Disorders: No Family Medical History No Pertinent Family Hx SOCIAL HISTORY: -SMOKES 1 PPD FROM AGE 17 ( QUIT FOR 10 YEARS WHILE IN [facility] FROM 2011-06/2022), THEN RESTARTED SOON HE GOT OUT OF [facility] 06/2022 -ETOH--USED TO DRINK 12 PACK OF BEER EVERY DAY BEFORE HE WENT TO [facility] -DRUGS--USED TO SMOKE MARIJUANA ON REGULAR BASIS, USED "ROCK COCAINE" ONCE--DENIES IV USE. PAST SURGICAL HISTORY: -TONSILLECTOMY -CHOLECYSTECTOMY Physical Exam Vital Signs - First Documented 12/01/22 15:45 Pulse 86 Resp 16 B/P (MAP) 129/80 (96) Pulse Ox 98 Capillary Refill : Height, Weight, BMI Height: '" Weight: lbs. oz. 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 Patient is currently homeless. States he does not know where to live at this time. He is requesting food and a behavioral health assessment. States he has been feeling depressed but denies of any suicidal homicidal thoughts. Does see a therapist at [facility] that he saw last . He does have coping mechanisms he does to help with the stress. He reports reading or doing puzzles. Patient is requesting food. Patient was wanting to watch TV. Patient was wanting somewhere to sleep tonight. After talking with patient he has no active suicidal homicidal thoughts. Patient appears to be wanting somewhere to live. Talk to patient about his depression. He states he does not take any current medication. He does not want to be on medication. Discussed with patient that he is currently established with [facility]. There is no signs of psychosis or hallucinations. Patient is cooperative. Denies suicidal homicidal thoughts. Does not necessarily meet behavioral health assessment. Did give patient food here. Did offer resources outpatient. Patient agrees with this plan of action. Return precaution were discussed. Patient has no access to guns. Patient states he feels safe to go home Impression Primary Impression: Depression Disposition: 01 HOME, SELF-CARE Condition: Stable Departure-Patient Inst. Decision time for Depature: 16:11 Referrals: [facility] RODNEY,LOCAL PHYSICIAN (PCP) Primary Care Physician Patient Instructions: Depression, Adult ED EUGENIE TONG December 01, 2022 16:13
== END 2022-12-01 16:32 | disposition home or self-care (01) ==
LOC: EDUNIT# 14:34 → ER 14:35
DX: F32.A Depression, unspecified (principal); Z28.310 Unvaccinated for COVID-19; Z87.891 Personal history of nicotine dependence
CPT/HCPCS: 99281

== ENCOUNTER 2022-12-16 19:22 | Emergency (ER) | payer SELFPAY ==
[~2022-12-16] VITALS: Ht 172 cm; Wt 65.0 kg
--- NOTE | 2022-12-16 19:39 | ED Syncope ---
General Chief Complaint: Dizziness/Syncope Stated Complaint: SYNCOPAL EPISODE Source of Information: Patient, EMS Exam Limitations: No Limitations History of Present Illness Date Seen by Provider: Dec 16, 2022 Time Seen by Provider: 19:26 Initial Comments 52 yo M here for syncope via EMS. symptoms just prior to arrival. H/O borderline DM with no meds and anxiety. No Cardiac history. was standing in his apartment to get ice and passed out. [place] a little lightheaded just prior but no other preceeding symptoms. No recent illness. No CP/SOB. Initially states has had only 1 previous episode 1 week ago, but later states i get shaky after i have these "Attacks." asked again if he has had them before and he states for a few years. Other systems reviewed and negative except per HPI. Allergies and Home Medications Allergies Coded Allergies: No Known Drug Allergies (Unverified , 09/05/22) Patient Home Medication List Home Medication List Reviewed: Yes Doxycycline Hyclate (Doxycycline Hyclate) 100 Mg Tablet, 100 MG PO BID Prescribed by: DEMARCO AGUILAR on 11/12/22 0000 Guaifenesin/Dextromethorphan (Mucinex Dm ER 1,200-60 mg Tab) 1,200 Mg-60 Mg Tbmp.12hr, 1 EACH PO BID Prescribed by: DEMARCO AGUILAR on 11/12/22 Methylprednisolone (Medrol) 4 Mg Tab.ds.pk, 4 MG PO UD Prescribed by: DEMARCO AGUILAR on 11/12/22 0000 Review of Systems Constitutional: see HPI Past Cprljcl-Ijrwxn-Dzprsl Hx Patient Social History Tobacco Use?: Yes Tobacco type used: Cigarettes Smoking Status: Current Everyday Smoker Use of E-Cig and/or Vaping dev: No Substance use?: No Alcohol Use?: No Pt feels they are or have been: No Immunizations Up To Date First/Initial COVID19 Vaccinat: N/A Second COVID19 Vaccination [facility]: N/A Third COVID19 Vaccination Date: N/A Past Medical History Surgery/Hospitalization HX: Anxiety, GERD, hypercholesterolemia Surgeries: Yes Gallbladder, Tonsillectomy Respiratory: No Cardiac: Yes High Cholesterol Neurological: No Genitourinary: No Gastrointestinal: Yes Gastroesophageal Reflux Musculoskeletal: No Endocrine: No HEENT: No Cancer: No Psychosocial: Yes Anxiety Integumentary: No Blood Disorders: No Family Medical History No Pertinent Family Hx SOCIAL HISTORY: -SMOKES 1 PPD FROM AGE 17 ( QUIT FOR 10 YEARS WHILE IN [facility] FROM 2011-06/2022), THEN RESTARTED SOON HE GOT OUT OF [facility] 06/2022 -ETOH--USED TO DRINK 12 PACK OF BEER EVERY DAY BEFORE HE WENT TO [facility] -DRUGS--USED TO SMOKE MARIJUANA ON REGULAR BASIS, USED "ROCK COCAINE" ONCE--DENIES IV USE. PAST SURGICAL HISTORY: -TONSILLECTOMY -CHOLECYSTECTOMY Physical Exam Vital Signs Vital Signs - First Documented 12/16/22 19:26 Temp 36.1 Pulse 93 Resp 20 B/P (MAP) 125/95 (105) Pulse Ox 95 O2 Delivery Room Air Capillary Refill : Height, Weight, BMI Height: '" Weight: lbs. oz. kg; 25.00 BMI Method: General Appearance: No Apparent Distress, WD/WN HEENT: PERRL/EOMI, TMs Normal, Normal ENT Inspection, Pharynx Normal Neck: Full Range of Motion, Normal Inspection, Non Tender, Supple Cardiovascular: Regular Rate, Rhythm, No Murmur, Normal Peripheral Pulses Respiratory: Chest Non Tender, Lungs Clear, Normal Breath Sounds, No Accessory Muscle Use, No Respiratory Distress Gastrointestinal: Normal Bowel Sounds, No Organomegaly, No Pulsatile Mass, Non Tender, Soft Extremities: Normal Capillary Refill, Normal Inspection, Normal Range of Motion, Non Tender, No Calf Tenderness Neurologic/Psychiatric: Alert, Oriented x3, No Motor/Sensory Deficits, Normal 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, 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 as Tested Skin: Normal Color, Warm/Dry Lymphatic: No Adenopathy Progress/Results/Core Measures Results/Orders Lab Results Laboratory Tests Test 12/16/22 19:28 Range/Units White Blood Count 7.9 4.3-11.0 10^3/uL Red Blood Count 4.67 4.30-5.52 10^6/uL Hemoglobin 15.0 13.3-17.7 g/dL Hematocrit 44 40-54 % Mean Corpuscular Volume 93 80-99 fL Mean Corpuscular Hemoglobin 32 25-34 pg Mean Corpuscular Hemoglobin Concent 35 32-36 g/dL Red Cell Distribution Width 11.6 10.0-14.5 % Platelet Count 281 130-400 10^3/uL Mean Platelet Volume 10.1 9.0-12.2 fL Immature Granulocyte % (Auto) 0 % Neutrophils (%) (Auto) 62 42-75 % Lymphocytes (%) (Auto) 26 12-44 % Monocytes (%) (Auto) 10 0-12 % Eosinophils (%) (Auto) 1 0-10 % Basophils (%) (Auto) 1 0-10 % Neutrophils # (Auto) 4.9 1.8-7.8 10^3/uL Lymphocytes # (Auto) 2.0 1.0-4.0 10^3/uL Monocytes # (Auto) 0.8 0.0-1.0 10^3/uL Eosinophils # (Auto) 0.1 0.0-0.3 10^3/uL Basophils # (Auto) 0.1 0.0-0.1 10^3/uL Immature Granulocyte # (Auto) 0.0 0.0-0.1 10^3/uL Sodium Level 139 135-145 MMOL/L Potassium Level 3.5 L 3.6-5.0 MMOL/L Chloride Level 106 98-107 MMOL/L Carbon Dioxide Level 23 21-32 MMOL/L Anion Gap 10 5-14 MMOL/L Blood Urea Nitrogen 13 7-18 MG/DL Creatinine 1.10 0.60-1.30 MG/DL Estimat Glomerular Filtration Rate 80 BUN/Creatinine Ratio 12 Glucose Level 101 70-105 MG/DL Calcium Level 9.7 8.5-10.1 MG/DL My Orders Orders - WALLACE CHRISTINE DO Basic Metabolic Panel (12/16/22 19:36) Ekg Tracing (12/16/22 19:36) Cbc With Automated Diff (12/16/22 19:36) Vital Signs/I&O 12/16/22 12/16/22 19:26 20:00 Temp 36.1 Pulse 93 90 Resp 20 20 B/P (MAP) 125/95 (105) 128/85 Pulse Ox 95 97 O2 Delivery Room Air Room Air Comment sinus rhythm 88bpm. Norm intervals, slight LAD. No ST or T wave abnormalities. No ectopy. No STEMI Departure Communication (Admissions) Patient is hemodynamically stable. Negative cardiac work-up here today with troponin, EKG. He is quite anxious likely that his symptoms are likely related to this. He had no recurrence of the syncopal episodes. EKG shows no evidence for dysrhythmia. Blood sugars are normal electrolytes are normal. No focal neurologic deficits. No indication for brain imaging at this time. Is discharged in stable condition with close follow-up. Impression Primary Impression: Syncope Qualified Codes: R55 - Syncope and collapse Disposition: 01 HOME, SELF-CARE Condition: Stable Departure-Patient Inst. Referrals: NO,LOCAL PHYSICIAN (PCP/Family) Primary Care Physician Patient Instructions: Syncope (Fainting) (DC) Add. Discharge Instructions: You were seen in the ER after passing out. It is unclear what caused your symptoms but there is no current evidence for an emergent cause. Your labs, vital signs, and exam are normal. Please follow up with your primary doctor if you continue to have concerns or return to the ER should your symptoms change in any way concerning to you. All discharge instructions reviewed with patient and/or family. Voiced understanding. WALLACE CHRISTINE DO Dec 16, 2022 19:39
[2022-12-16 19:40] LABS: BASOPHILS # (AUTO) 0.1 10^3/uL (0.0-0.1); BASOPHILS % (AUTO) 1 % (0-10); EOSINOPHILS # (AUTO) 0.1 10^3/uL (0.0-0.3); EOSINOPHILS % (AUTO) 1 % (0-10); HEMATOCRIT 44 % (40-54); LYMPHOCYTES % (AUTO) 26 % (12-44); MEAN CORPUSCULAR HEMOGLOBIN 32 pg (25-34); MEAN CORPUSCULAR HGB CONC 35 g/dL (32-36); MEAN CORPUSCULAR VOLUME 93 fL (80-99); MEAN PLATELET VOLUME 10.1 fL (9.0-12.2); MONOCYTES # (AUTO) 0.8 10^3/uL (0.0-1.0); MONOCYTES % (AUTO) 10 % (0-12); NEUTROPHILS # (AUTO) 4.9 10^3/uL (1.8-7.8); NEUTROPHILS % (AUTO) 62 % (42-75); PLATELET COUNT 281 10^3/uL (130-400); WHITE BLOOD COUNT 7.9 10^3/uL (4.3-11.0)
[2022-12-16 19:53] LABS: CALCIUM 9.7 MG/DL (8.5-10.1); CREATININE SERUM 1.1 MG/DL (0.60-1.30); POTASSIUM 3.5 MMOL/L (3.6-5.0)
[2022-12-16 20:00] VITALS: BP 128/85
== END 2022-12-16 20:00 | disposition home or self-care (01) ==
LOC: EDUNIT# 19:22 → ER 19:24
DX: R55 Syncope and collapse (principal); F41.9 Anxiety disorder, unspecified; F17.210 Nicotine dependence, cigarettes, uncomplicated
CPT/HCPCS: 36415; 80048; 85025; 93005

== ENCOUNTER 2023-01-06 14:11 | Emergency (ER) | payer SELFPAY ==
[~2023-01-06] VITALS: Ht 172 cm; Wt 66.0 kg
--- NOTE | 2023-01-06 14:23 | ED General ---
General Chief Complaint: Dizziness/Syncope Stated Complaint: SYNCOPE Nursing Triage Note: PT ARRIVED PER EMS. PT HAS HAD SYNCOPAL EPISODE TODAY AND WAS ASSISTED TO GROUND. PT IS AWAKE ALERT AND ORIENTED AT THIS X. PT IS HOMELESS AND THIS HAPPENS ON OCCASION Source of Information: Patient, EMS Exam Limitations: No Limitations History of Present Illness Date Seen by Provider: Jan 06, 2023 Time Seen by Provider: 14:09 Initial Comments 52-year-old male presents to the emergency department today for dizziness. He initially stated he had a syncopal episode but then admits he did not actually pass out today, just got really lightheaded and felt as though he may. He is homeless and has been out in the heat but has been drinking plenty of fluids. He does state that he has had these dizzy and intermittent syncopal episodes for upwards of 2 years. I saw him on 12/16 for similar symptoms. He had labs at that time which were unremarkable. Record review shows he has had multiple evaluations for the same type of episode including CT scan, EKG cardiac work-up, multiple lab evaluations and physical exams. He states this was the same or similar symptoms. Initially when asked why he came in he states "because of the heat." He then goes on to say he got busy. No changes in vision. No upper or lower extremity weakness numbness or tingling. All other systems reviewed and negative except documented per HPI. Voice recognition software was used to help create this chart Allergies and Home Medications Allergies Coded Allergies: No Known Drug Allergies (Unverified , 09/05/22) Patient Home Medication List Home Medication List Reviewed: Yes Doxycycline Hyclate (Doxycycline Hyclate) 100 Mg Tablet, 100 MG PO BID Prescribed by: DEMARCO AGUILAR on 11/12/22 Guaifenesin/Dextromethorphan (Mucinex Dm ER 1,200-60 mg Tab) 1,200 Mg-60 Mg Tbmp.12hr, 1 EACH PO BID Prescribed by: DEMARCO AGUILAR on 11/12/22 Methylprednisolone (Medrol) 4 Mg Tab.ds.pk, 4 MG PO UD Prescribed by: DEMARCO AGUILAR on 11/12/22 Review of Systems Review of Systems Constitutional: see HPI Past Rlvcgyj-Ucvdcl-Abtfth Hx Patient Social History Tobacco Use?: Yes Tobacco type used: Cigarettes Smoking Status: Current Everyday Smoker Alcohol Use?: No Pt feels they are or have been: No Immunizations Up To Date First/Initial COVID19 Vaccinat: N/A Second COVID19 Vaccination [facility]: N/A Third COVID19 Vaccination Date: N/A Past Medical History Surgery/Hospitalization HX: Anxiety, GERD, hypercholesterolemia Surgeries: Yes Gallbladder, Tonsillectomy Respiratory: No Cardiac: Yes High Cholesterol Neurological: No Genitourinary: No Gastrointestinal: Yes Gastroesophageal Reflux Musculoskeletal: No Endocrine: No HEENT: No Cancer: No Psychosocial: Yes Anxiety Integumentary: No Blood Disorders: No Family Medical History No Pertinent Family Hx SOCIAL HISTORY: -SMOKES 1 PPD FROM AGE 17 ( QUIT FOR 10 YEARS WHILE IN [facility] FROM 2011-06/2022), THEN RESTARTED SOON HE GOT OUT OF [facility] 06/2022 -ETOH--USED TO DRINK 12 PACK OF BEER EVERY DAY BEFORE HE WENT TO [facility] -DRUGS--USED TO SMOKE MARIJUANA ON REGULAR BASIS, USED "ROCK COCAINE" ONCE--DENIES IV USE. PAST SURGICAL HISTORY: -TONSILLECTOMY -CHOLECYSTECTOMY Physical Exam Vital Signs Vital Signs - First Documented 01/06/23 14:13 Temp 36.5 Pulse 78 Resp 18 B/P (MAP) 135/79 (97) Pulse Ox 97 Capillary Refill : Less Than 3 Seconds Height, Weight, BMI Height: '" Weight: lbs. oz. kg; 22.00 BMI Method: General Appearance: No Apparent Distress, WD/WN Eyes: Bilateral Eye Normal Inspection, Bilateral Eye PERRL, Bilateral Eye EOMI HEENT: PERRL/EOMI, TMs Normal, Normal ENT Inspection, Pharynx Normal Neck: Full Range of Motion, Normal Inspection, Non Tender, Supple Respiratory: Chest Non Tender, Lungs Clear, Normal Breath Sounds, No Accessory Muscle Use, No Respiratory Distress Cardiovascular: Regular Rate, Rhythm, No Murmur, Normal Peripheral Pulses Gastrointestinal: Normal Bowel Sounds, No Organomegaly, Non Tender, Soft Extremity: Normal Capillary Refill, Normal Inspection, Normal Range of Motion, Non Tender, No Calf Tenderness Neurologic/Psychiatric: Alert, Oriented x3, No Motor/Sensory Deficits Skin: Normal Color, Warm/Dry Progress/Results/Core Measures Suspected Sepsis SIRS Temperature: Pulse: 78 Respiratory Rate: 18 Blood Pressure 135 /79 Mean: 97 Results/Orders Vital Signs/I&O 01/06/23 14:13 Temp 36.5 Pulse 78 Resp 18 B/P (MAP) 135/79 (97) Pulse Ox 97 Capillary Refill : Less Than 3 Seconds Blood Pressure Mean: 97 Departure Communication (Admissions) Patient is hemodynamically stable. He has normal vital signs and normal neurologic and physical exam. He was seen here on 6 for the same with a negative work-up at that time. Record review shows a myriad of work-up for the same thing including CT scans multiple EKGs and cardiac work-ups, lab evaluations and physical exams. I do not believe there is any indication for further work-up at this time. He is tolerating p.o. and has completely normal vital signs. No clinical evidence of dehydration. He is well-kept, not swea ting does not appear overheated. Impression Primary Impression: Dizziness Disposition: HOME, SELF-CARE Condition: Stable Departure-Patient Inst. Referrals: NO,LOCAL PHYSICIAN (PCP/Family) Primary Care Physician Patient Instructions: Vertigo (a Type of Dizziness) (DC) Add. Discharge Instructions: As discussed we have exhausted all of our testing abilities here in the emergency department. There is no evidence of an emergent medical condition at this time. I recommend you follow-up with your primary doctor for further evaluation and treatment recommendations and they may have some more specialized testing that they would want to try. Continue to increase her fluids and avoid the heat if possible. Return to the emergency department for any severe concerns. All discharge instructions reviewed with patient and/or family. Voiced understa nding. WALLACE CHRISTINE DO Jan 06, 2023 14:23
[2023-01-06 14:33] VITALS: BP 135/79
== END 2023-01-06 14:33 | disposition home or self-care (01) ==
LOC: EDUNIT# 14:11 → ER 14:12
DX: R42 Dizziness and giddiness (principal); F17.210 Nicotine dependence, cigarettes, uncomplicated; Z28.310 Unvaccinated for COVID-19
CPT/HCPCS: 99283

== ENCOUNTER 2023-01-30 21:36 | Emergency (ER) | payer SELFPAY ==
[~2023-01-30] VITALS: Ht 172 cm; Wt 66.0 kg
[2023-01-30 21:41] VITALS: BP 115/86
[2023-01-30] MEDS ORDERED: ONDANSETRON 4 MG (ZOFRAN) ORAL DISSOLVE TAB PO STA (21:46)
[2023-01-30] MEDS ORDERED: ONDA8TAB13 SL (21:50)
--- NOTE | 2023-01-30 21:50 | ED GI ---
General Chief Complaint: Abdominal/GI Problems Stated Complaint: STOMACH ISSUES Source of Information: Patient Exam Limitations: No Limitations History of Present Illness Date Seen by Provider: Jan 30, 2023 Time Seen by Provider: 21:39 Initial Comments 52-year-old male presents for diarrhea since this evening, approximately 2 hours now. He states he has IBS and when he has flares he has diarrhea and abdominal cramping diffusely. He has not tried anything for his symptoms. He states he has had frequent IBS flares recently but has not seen his primary doctor. He does not take anything for IBS regularly. All other systems reviewed and negative except documented per HPI. Voice recognition software was used to help create this chart Allergies and Home Medications Allergies Coded Allergies: No Known Drug Allergies (Unverified , 09/05/22) Patient Home Medication List Home Medication List Reviewed: Yes No Active Prescriptions or Reported Meds Review of Systems Review of Systems Constitutional: see HPI Past Nkehtau-Bethfb-Derpmu Hx Patient Social History Tobacco Use?: Yes Substance use?: No Alcohol Use?: No Pt feels they are or have been: No Immunizations Up To Date First/Initial COVID19 Vaccinat: N/A Second COVID19 Vaccination [facility]: N/A Third COVID19 Vaccination Date: N/A Past Medical History Surgery/Hospitalization HX: Anxiety, GERD, hypercholesterolemia, IBS, CHOLECYSTECTOMY, T/A Surgeries: Yes Gallbladder, Tonsillectomy Respiratory: No Cardiac: Yes High Cholesterol Neurological: No Genitourinary: No Gastrointestinal: Yes Gastroesophageal Reflux Musculoskeletal: No Endocrine: No HEENT: No Cancer: No Psychosocial: Yes Anxiety Integumentary: No Blood Disorders: No Family Medical History No Pertinent Family Hx SOCIAL HISTORY: -SMOKES 1 PPD FROM AGE 17 ( QUIT FOR 10 YEARS WHILE IN [facility] FROM 2011-06/2022), THEN RESTARTED SOON HE GOT OUT OF [facility] 06/2022 -ETOH--USED TO DRINK 12 PACK OF BEER EVERY DAY BEFORE HE WENT TO [facility] -DRUGS--USED TO SMOKE MARIJUANA ON REGULAR BASIS, USED "ROCK COCAINE" ONCE--DENIES IV USE. PAST SURGICAL HISTORY: -TONSILLECTOMY -CHOLECYSTECTOMY Physical Exam Vital Signs Capillary Refill : Height/Weight/BMI Height: '" Weight: lbs. oz. kg; 22.00 BMI Method: General Appearance: WD/WN, no apparent distress HEENT: normal ENT inspection, pharynx normal Neck: non-tender, supple Respiratory: chest non-tender, lungs clear, normal breath sounds, no respiratory distress, no accessory muscle use Cardiovascular: regular rate, rhythm, no murmur Gastrointestinal: normal bowel sounds, soft, no organomegaly, tenderness (Mild diffuse tenderness without rebound or guarding.) Extremities: normal range of motion, non-tender, normal inspection, normal capillary refill Neurologic/Psychiatric: alert, normal mood/affect, oriented x 3 Departure Communication (Admissions) Patient is a loose stools for 2 hours. There is no indication for labs or other work-up at this time. He is hemodynamically stable with normal vital signs, benign exam. He has had the symptoms in the past with IBS. He states Imodium usually works but he did not have any at home, request some here. States he will get some on the way home. Denies any fevers or chills. He is not toxic. He is tolerating p.o. with no vomiting but he does endorse some mild nausea so was given some ODT Zofran. He is discharged home in stable condition with recommendation to follow-up with his primary doctor for possible treatment of IBS. Impression Primary Impression: Loose stools Disposition: HOME, SELF-CARE Condition: Stable Departure-Patient Inst. Referrals: NO,LOCAL PHYSICIAN (PCP/Family) Primary Care Physician Patient Instructions: Irritable Bowel Syndrome (DC) Add. Discharge Instructions: Use Imodium [id number] as needed. Use Zofran as needed by dissolving under your tongue. Return to the emergency department for severe concerns. Follow-up with her primary doctor for possible discussion of more long-term treatment of IBS. All discharge instructions reviewed with patient and/or family. Voiced understanding. Scripts Ondansetron (Ondansetron Odt) 8 Mg Tab.rapdis 8 MG SL Q6H PRN for NAUSEA/VOMITING for 3 Days, #12 TAB Prov: WALLACE CHRISTINE DO 01/30/23 WALLACE CHRISTINE DO Jan 30, 2023 21:50
[2023-01-30] MEDS ORDERED: LOPERAMIDE 2 MG (IMODIUM) TABLET PO ONE (22:00)
== END 2023-01-30 22:09 | disposition home or self-care (01) ==
LOC: EDUNIT# 21:36 → ER 21:38
DX: R19.7 Diarrhea, unspecified (principal); R11.0 Nausea; R10.84 Generalized abdominal pain; Z87.891 Personal history of nicotine dependence; Z87.19 Personal history of other diseases of the digestive system; Z90.49 Acquired absence of other specified parts of digestive tract; Z28.310 Unvaccinated for COVID-19
CPT/HCPCS: 99283

== ENCOUNTER 2023-05-29 20:01 | Emergency (ER) | payer SELFPAY ==
[~2023-05-29] VITALS: Ht 172 cm; Wt 71.0 kg
[~2023-05-29 20:01] MED LIST changes: +ONDA8TAB13 SL
[2023-05-29] MEDS ORDERED: HYDROcodone/ACETAMINOPHEN 5 MG/325 MG TABLET PO ONE (20:15)
--- NOTE | 2023-05-29 20:18 | ED Upper Extremity ---
General Chief Complaint: Upper Extremity Stated Complaint: RT ARM HURTS, SOB Source: patient Exam Limitations: no limitations (EUGENIE TONG) History of Present Illness Date Seen by Provider: May 29, 2023 Time Seen by Provider: 20:14 Initial Comments Patient is a 52-year-old male with a history of smoking who presents ED with right shoulder pain. Patient states he has been having shoulder pain since last year since he started this job. Patient works in [employer]. States since he has been using this blower that is a backpack this has resulted increasing pain across his shoulder over the past several days. He is having difficulty with movement. No distal numbness and tingling in the hand but does report pain. States he has been taking a hojg-mwv-sodcymp anti-inflammatory without much improvement. Pain is worse with range of motion exercises or movement. Patient denies any chest pain, shortness of breath. Does report a chronic cough but every day smoker. Patient denies fever, chills, nausea vomit, diarrhea. (EUGENIE TONG) Allergies and Home Medications Allergies Coded Allergies: No Known Drug Allergies (Unverified , 09/05/22) Patient Home Medication List Home Medication List Reviewed: Yes (EUGENIE TONG) Methylprednisolone (Methylprednisolone Dose Pack) 4 Mg Tab.ds.pk, 4 MG PO UD Prescribed by: CRUZ TREJO on 05/29/232052 Naproxen (Naproxen) 500 Mg Tablet, 500 MG PO Q12H Prescribed by: CRUZ TREJO on 05/29/232052 Ondansetron (Ondansetron Odt) 8 Mg Tab.rapdis, 8 MG SL Q6H PRN for NAUSEA/VOMITING Prescribed by: WALLACE CHRISTINE MD on 01/30/232149 Review of Systems Constitutional: No chills, No diaphoresis, No malaise, No weakness EENTM: No hearing loss, No ear pain, No blurred vision Respiratory: No cough, No dyspnea on exertion Cardiovascular: No chest pain Gastrointestinal: No abdominal pain, No diarrhea, No nausea, No vomiting Genitourinary: No decreased output, No discharge Musculoskeletal: No back pain; joint pain; No joint swelling; muscle pain, muscle stiffness Skin: No change in color, No change in hair/nails (EUGENIE TONG) Past Tgbsapo-Vjjncf-Glogpk Hx Patient Social History Tobacco Use?: Yes Tobacco type used: Cigarettes Smoking Status: Current Everyday Smoker Use of E-Cig and/or Vaping dev: No Substance use?: No Alcohol Use?: No Pt feels they are or have been: No (EUGENIE TONG) Immunizations Up To Date First/Initial COVID19 Vaccinat: N/A Second COVID19 Vaccination [facility]: N/A Third COVID19 Vaccination Date: N/A (EUGENIE TONG) Past Medical History Surgery/Hospitalization HX: Anxiety, GERD, hypercholesterolemia, IBS, CHOLECYSTECTOMY, T/A Surgeries: Yes Gallbladder, Tonsillectomy Respiratory: No Cardiac: Yes High Cholesterol Neurological: No Genitourinary: No Gastrointestinal: Yes Gastroesophageal Reflux Musculoskeletal: No Endocrine: No HEENT: No Cancer: No Psychosocial: Yes Anxiety Integumentary: No Blood Disorders: No (EUGENIE TONG) Family Medical History No Pertinent Family Hx SOCIAL HISTORY: -SMOKES 1 PPD FROM AGE 17 ( QUIT FOR 10 YEARS [facility]ILE IN [facility]), THEN RESTARTED SOON HE GOT OUT OF [facility] 06/2022 -[facility]--USED TO DRINK 12 PACK OF BEER EVERY DAY BEFORE HE WENT TO [facility] -DRUGS--USED TO SMOKE MARIJUANA ON REGULAR BASIS, USED "ROCK COCAINE" ONCE--DENIES IV USE. PAST SURGICAL HISTORY: -TONSILLECTOMY -CHOLECYSTECTOMY (EUGENIE TONG) Physical Exam Vital Signs Vital Signs - First Documented 05/29/23 05/29/23 20:05 20:58 Temp 36.1 Pulse 83 Resp 20 B/P (MAP) 132/93 (106) Pulse Ox 99 O2 Delivery Room Air O2 Flow Rate 98.00 (JORDYN THEODORE MD) Vital Signs Capillary Refill : (EUGENIE TONG) Height, Weight, BMI Height: '" Weight: lbs. oz. kg; 22.00 BMI Method: General Appearance: WD/WN, no apparent distress HEENT: PERRL/EOMI, normal ENT inspection, TMs normal, pharynx normal Neck: non-tender, full range of motion, supple Cardiovascular: regular rate, rhythm, no edema, no gallop, no JVD Respiratory: chest non-tender, lungs clear, normal breath sounds, no respiratory distress, no accessory muscle use Gastrointestinal: normal bowel sounds, non tender, soft Back: normal inspection Shoulder: limited ROM, pain, soft tissue tenderness (Tenderness to palpate the AC joint of the right shoulder. Limited passive range of motion secondary to pain. 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 Neurovascular intact. Flexion extension strength of the elbow 5/5. 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 Patient works in [employer]. 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 He has had right shoulder pain for several months since starting this job. This really became worse over the past week and a few days. No distal numbness and tingling. No specific chest pain or known cardiac history. Does have tenderness to the right AC joint. Limited passive range of motion secondary to pain. Neurovascular intact. Suspect shou lder sprain, rotator cuff injury, bursitis, overuse, tendinitis. X-ray was ordered which did not note any acute fracture. Patient does report a cough over the past week. Chest x-ray was negative for pneumonia. Discussed smoking cessation. At this time recommend rest, range of motion anti-inflammatories. Provided orthopedic outpatient follow-up. Provided range of motion exercises and limitations for work. If any worsening symptoms such as chest pain or shortness of breath to return back to ED. Outpatient follow-up. (EUGENIE TONG) Impression Primary Impression: Shoulder pain Disposition: 01 HOME, SELF-CARE Condition: Stable Departure-Patient Inst. Decision time for Depature: 20:52 (EUGENIE TONG) Referrals: NO,LOCAL PHYSICIAN (PCP) Primary Care Physician JOSE RAMIREZ MD Patient Instructions: Shoulder Pain ED Scripts Methylprednisolone (Methylprednisolone Dose Pack) 4 Mg Tab.ds.pk 4 MG PO UD for 6 Days, #21 PKG PER DOSE PACK INSTRUCTIONS Prov: EUGENIE TONG 05/29/23 Naproxen (Naproxen) 500 Mg Tablet 500 MG PO Q12H, #20 TAB Prov: EUGENIE TONG 05/29/23 Work/School Note: Work Release Form Date Seen in the Emergency Department: May 29, 2023 Return to Work: Jun 03, 2023 ATTENDING PHYSICIAN NOTE: I was physically present as attending physician in the emergency department during the care of this patient, but I was not directly involved in the decision making or delivery of care for this patient. (JORDYN THEODORE MD) EUGENIE TONG May 29, 2023 20:18 JORDYN THEODORE MD May 31, 2023 06:53
--- NOTE | 2023-05-29 20:45 | Diagnostic Imaging Report ---
HISTORY: Right shoulder pain. TECHNIQUE: 3 views of the right shoulder. COMPARISON: None. FINDINGS: No acute fracture or dislocation is seen in the right shoulder. Alignment appears normal. Joint spaces are preserved. IMPRESSION: No acute osseous abnormality is seen in the right shoulder. Dictated by: Dictated on workstation # [id number]
--- NOTE | 2023-05-29 20:47 | Diagnostic Imaging Report ---
PATIENT HISTORY: SOB. TECHNIQUE: Single frontal view of the chest. COMPARISON: 11/11/2022. FINDINGS: The lung volumes are normal. No focal consolidation is seen. No large pleural effusion or pneumothorax is seen. The cardiomediastinal silhouette is normal in size and contour. No acute osseous abnormality is seen. IMPRESSION: No acute pulmonary abnormality seen. Dictated by: Dictated on workstation # [id number]
[2023-05-29] MEDS ORDERED: METH4TAB10 PO (20:53)
[2023-05-29] MEDS ORDERED: NAPR-915 PO (20:53)
[2023-05-29 20:58] VITALS: BP 120/78
== END 2023-05-29 20:58 | disposition home or self-care (01) ==
LOC: EDUNIT# 20:01 → ER 20:05
DX: M25.511 Pain in right shoulder (principal); F17.210 Nicotine dependence, cigarettes, uncomplicated
CPT/HCPCS: 71045; 73030